=== PATIENT | female | born 1980 | race Two or more races ===

== ENCOUNTER 2020-12-02 00:39 | Emergency (ER) | payer BC ==
[~2020-12-02] VITALS: Ht 152.4 cm; Wt 70.3 kg
--- NOTE | 2020-12-02 01:07 | NUR ---
PT BIBS C/O MIDDLE CHEST PAIN. PT STATES IT IS NON RADIATING AND HAS BEEN GOING ON FOR A FEW DAYS. PT ALERT AND ORIENTED X3. AMBULATORY WITH NON LABORED BREATHING. PT PLACED ON MONITOR AND IN A GOWN.
[2020-12-02 01:30] LABS: BASOPHILS % (AUTO) 0.4 % (0.0-2.0); EOSINOPHILS % (AUTO) 1.7 % (0.0-6.0); HEMATOCRIT 40 % (33-45); HEMOGLOBIN 13.5 g/dL (11.5-14.8); LYMPHOCYTES # (AUTO) 2.6 K/uL (0.8-4.8); LYMPHOCYTES % (AUTO) 26.1 % (20.0-44.0); MEAN CORPUSCULAR HGB CONC 34 g/dl (31.0-36.0); MEAN CORPUSCULAR VOLUME 85 fL (82-100); MONOCYTES # (AUTO) 0.9 K/uL (0.1-1.30); MONOCYTES % (AUTO) 8.7 % (2.0-12.0); NEUTROPHILS # (AUTO) 6.2 K/uL (1.8-8.9); NEUTROPHILS % (AUTO) 63.1 % (43.0-81.0); PLATELET COUNT (AUTO) 335 K/uL (150-450); RED BLOOD CELL COUNT(AUTO) 4.73 MIL/uL (4.0-5.2); WHITE BLOOD COUNT (AUTO) 9.8 K/uL (4.3-11.0)
[2020-12-02] MEDS ORDERED: NAPROXEN 500 MG TABLET PO SCH (01:30)
[2020-12-02 01:41] LABS: ALANINE AMINOTRANSFERASE 34 U/L (12-78); ALBUMIN 3.8 g/dL (3.4-5.0); ALKALINE PHOSPHATASE 63 U/L (46-116); ASPARTATE AMINOTRANSFERASE 19 U/L (15-37); BILIRUBIN,DIRECT 0.1 mg/dL (0.0-0.2); BILIRUBIN,TOTAL 0.6 mg/dL (0.2-1.0); CALCIUM, SERUM 8.3 mg/dL (8.5-10.1); CARBON DIOXIDE 28 mmol/L (21-32); CHLORIDE 103 mmol/L (98-107); CREATININE 0.7 mg/dL (0.6-1.3); GLUCOSE 103 mg/dL (74-106); POTASSIUM 4.1 mmol/L (3.5-5.1); SODIUM SERUM 138 mmol/L (136-145); TOTAL PROTEIN, SERUM 7.4 g/dL (6.4-8.2); UREA NITROGEN, BLOOD 14 mg/dL (7-18)
[2020-12-02 01:48] LABS: D-DIMER 0.46 mg/L(FEU (0.17-0.50)
[2020-12-02] MEDS ORDERED: NAPROXEN 250 MG TABLET ONE (02:13)
[2020-12-02] MEDS ORDERED: IBUPROFEN 400 MG TABLET ONE (02:52)
[2020-12-02] MEDS ORDERED: ONDANSETRON 4 MG TAB.RAPDIS ONE (02:53)
[2020-12-02] MEDS ORDERED: ONDANSETRON 4 MG TAB.RAPDIS SL ONE (03:00)
[2020-12-02] MEDS ORDERED: IBUPROFEN 400 MG TABLET PO ONE (03:00)
--- NOTE | 2020-12-02 03:37 | NUR ---
PT SLEEPING COMFORTABLY BREATHING EVEN AND UNLABORED. EASILY AROUSABLE VITAL SIGNS STABLE.
--- NOTE | 2020-12-02 05:36 | NUR ---
Patient discharged to home in stable condition. Written and verbal after care instructions given. Patient verbalizes understanding of instruction.
[2020-12-02 05:37] VITALS: BP 106/56
== END 2020-12-02 05:37 | disposition home or self-care (01) ==
LOC: ER 00:46
DX: R07.89 Other chest pain (principal); Z60.2 Problems related to living alone
CPT/HCPCS: 36415; 71045; 80048; 80076; 84484; 85025; 85378; 85730; 93005; 99285; Q0162

== ENCOUNTER 2022-02-08 01:31 | Emergency (ER) | payer BC ==
[~2022-02-08] VITALS: Ht 152.4 cm; Wt 63.5 kg
[2022-02-08] MEDS ORDERED: DICYCLOMINE HCL INJ 20 MG/2 ML AMPUL IM ONE (02:12)
[2022-02-08] MEDS ORDERED: ONDANSETRON HCL/PF 4 MG/2 ML VIAL ONE (02:12)
[2022-02-08] MEDS ORDERED: MAG HYDROX/AL HYDROX/SIMETH 30 ML UDC ONE (02:12)
[2022-02-08] MEDS ORDERED: LIDOCAINE VISCOUS 2% UD 15 ML UDC ONE (02:12)
[2022-02-08] MEDS ORDERED: FAMOTIDINE/PF INJ 20 MG/2 ML VIAL IV ONE (02:13)
[2022-02-08] MEDS: FAMOTIDINE/PF INJ 20 MG/2 ML VIAL IV ONE (02:29)
[2022-02-08] MEDS: DICYCLOMINE HCL INJ 20 MG/2 ML AMPUL IM ONE (02:29)
[2022-02-08] MEDS: IV NS 0.9% 1,000 ML BAG IV ONE (02:29)
[2022-02-08] MEDS: ONDANSETRON HCL/PF 4 MG/2 ML VIAL IVP ONE (02:30)
[2022-02-08] MEDS: LIDOCAINE VISCOUS 2% UD 15 ML UDC MM ONE (02:30)
[2022-02-08] MEDS: MAG HYDROX/AL HYDROX/SIMETH 30 ML UDC PO ONE (02:30)
--- NOTE | 2022-02-08 02:30 | NUR ---
BLOOD COLLECTED AND SENT TO LAB
[2022-02-08 03:03] LABS: CALCIUM, SERUM 8.4 mg/dL (8.5-10.1); CREATININE 0.8 mg/dL (0.6-1.3); HEMOGLOBIN 12.8 g/dL (11.5-14.8); POTASSIUM 3.5 mmol/L (3.5-5.1)
[2022-02-08 03:08] LABS: ALBUMIN 3.7 g/dL (3.4-5.0); BILIRUBIN,DIRECT 0.2 mg/dL (0.0-0.2)
[2022-02-08] MEDS ORDERED: ONDA4TAB5 PO (03:12)
[2022-02-08] MEDS ORDERED: FAMO-131 PO (03:12)
[2022-02-08 03:18] LABS: HEMATOCRIT 38 % (33-45); MEAN CORPUSCULAR HGB CONC 33 g/dl (31.0-36.0); MEAN CORPUSCULAR VOLUME 84 fL (82-100); PLATELET COUNT (AUTO) 360 K/uL (150-450); WHITE BLOOD COUNT (AUTO) 7.4 K/uL (4.3-11.0)
[2022-02-08 03:59] LABS: BASOPHILS % (MANUAL) 0 % (0.0-2.0); EOSINOPHILS % (MANUAL) 0 % (0-4); LYMPHOCYTES % (MANUAL) 28 % (16-48); MONOCYTES % (MANUAL) 9 % (0-11.0); NEUTROPHILS % (MANUAL) 63 (42-76)
[2022-02-08 04:38] LABS: BILIRUBIN,URINE NEGATIVE (NEGATIVE); COLOR,URINE YELLOW (YELLOW); LEUKOCYTE ESTERASE ,URINE NEGATIVE (NEGATIVE); NITRITE, URINE NEGATIVE (NEGATIVE); PH,URINE 5.5 (5.0-8.0); PROTEIN,URINE NEGATIVE (NEGATIVE); UGLUCOSE NEGATIVE (NEGATIVE); UROBILINOGEN,URINE 0.2 EU/dL (0.2)
[2022-02-08 05:54] VITALS: BP 119/64
--- NOTE | 2022-02-08 05:54 | NUR ---
IV removed. Catheter intact and site benign. Pressure and 4x4 applied to site. No bleeding noted.
--- NOTE | 2022-02-08 05:54 | NUR ---
Patient discharged to home in stable condition. Written and verbal after care instructions given. Patient verbalizes understanding of instruction.
== END 2022-02-08 05:55 | disposition home or self-care (01) ==
LOC: ER 01:33
DX: R10.84 Generalized abdominal pain (principal); Z60.2 Problems related to living alone; R11.0 Nausea
CPT/HCPCS: 99284; 74176; 96374; 96361; 96375; 96372; 85025; 80048; 83690; 80076; 84703; 81003; 36415; 85007; J3490; J2405; J0500